=== PATIENT | male | born 1975 | race Caucasian/White ===

== ENCOUNTER 2024-04-17 12:22 | Emergency (ER) | payer BC ==
[2024-04-17 12:44] VITALS: TEMP 97.9; O2SAT 98
--- NOTE | 2024-04-17 13:10 | ERPHSYRPT ---
- History of Present Illness Time Seen by Provider: 04/17/24 13:00 Source: patient Exam Limitations: no limitations Patient Subjective Stated Complaint: back pain that radiates to the right lower abdomen/pelvic region Triage Nursing Assessment: Pt brought to the ER by his , hypertensive, rates pain as a 7/10 in his right flank and right lower abdomen/pelvic region, pulses normal, skin n/w/d, pain began last night, frequent/painful urination, no difficulty breathing, doesn't appear to be in any distress Allergies/Adverse Reactions: lisinopril Allergy (Verified 04/17/24 12:44) Home Medications: Testosterone Enanthate [Xyosted] 75 mg SQ UD 04/17/24 [History] Tirzepatide [Zepbound] 5 mg SQ WEEKLY 04/17/24 [History] Hx Influenza Vaccination/Date Given: No Hx Pneumococcal Vaccination/Date Given: No Travel Risk - International Travel Have you traveled outside of the country in past 3 weeks: No - Emerging Infectious Disease Are you exhibiting symptoms associated with any current EIDs: No - Past Medical History Pertinent Past Medical History: No - Past Surgical History Past Surgical History: Yes Gastrointestinal: Appendectomy Musculoskeletal: Orthopedic Surgery Other Surgical History: wrist - Social History Smoking Status: Never smoker Exposure to second hand smoke: No Drug Use: none - Social Determinants of Health Will the patient participate in the screening: Yes Do you worry about a steady place to live?: No Do you have any problems with any of the following?: No known problems In the past 12 months,have you had to go without utilities?: No Transportation Issues: No Has anyone in your support network made you feel unsafe?: No Have you or anyone in your house had to go without enough: No - Nursing Vital Signs Nursing Vital Signs: Initial Vital Signs Temperature 97.9 F 04/17/24 12:36 Pulse Rate 77 04/17/24 12:36 Blood Pressure 171/92 04/17/24 12:36 O2 Sat by Pulse Oximetry 98 04/17/24 12:36 Pain Scale Pain Intensity [Right Lower 7 Abdomen] Pain Intensity 7 - Physical Exam SpO2: 98 Ordered Tests: Active Orders 24 hr Category Date Time Status ABDOMEN AND PELVIS W/0 CONTRAS [CT] Stat Exams 04/17/24 13:09 Completed CBC W DIFF Stat Lab 04/17/24 13:20 Completed CMP Stat Lab 04/17/24 13:20 Completed UA W/RFX UR CULTURE Stat Lab 04/17/24 13:23 Completed Medication Summary Discontinued Medications Generic Name Dose Route Start Last Admin Trade Name Tee PRN Reason Stop Dose Admin Sodium Chloride 1,000 mls @ 999 mls/hr 04/17/24 13:07 04/17/24 14:29 Sodium Chloride 0.9% 1000 Ml IV 04/17/24 14:07 Infused .Q1H1M STA Infusion Sodium Chloride Confirm 04/17/24 13:24 Sodium Chloride 0.9% 1000 Ml Administered 04/17/24 13:25 Dose 1,000 mls @ ud .ROUTE .STK-MED ONE Ketorolac Tromethamine 30 mg 04/17/24 13:07 04/17/24 13:25 Ketorolac Tromethamine 30 Mg/Ml Inj IV 04/17/24 13:08 30 mg STAT ONE Administration Ketorolac Tromethamine Confirm 04/17/24 13:24 Ketorolac Tromethamine 30 Mg/Ml Inj Administered 04/17/24 13:25 Dose 30 mg .ROUTE .STK-MED ONE Lab/Rad Data: Laboratory Result Diagrams 04/17/24 13:20 04/17/24 13:20 Laboratory Results 04/17/24 04/17/24 04/17/24 Range/Units 13:23 13:20 13:20 WBC 8.5 (4.23-9.07) x10^3/uL RBC 5.32 (4.63-6.08) x10^6/uL Hgb 15.3 (13.7-17.5) g/dL Hct 45.6 (40.1-51.0) % MCV 85.7 (79.0-92.2) fL MCH 28.8 (25.7-32.2) pg MCHC 33.6 (32.3-36.5) g/dL RDW 13.2 (11.6-14.4) % Plt Count 162 L (163-337) x10^3/uL MPV 9.9 (9.4-12.4) fL Gran % 72.8 H (34.0-67.9) % Immature Gran % (Auto) 0.4 (0.001-0.429) % Nucleat RBC Rel Count 0.0 (0.00-0.2) % Eos # (Auto) 0.07 (0.04-0.54) x10^3/uL Immature Gran # (Auto) 0.03 (0.001-0.031) x10^3u/L Absolute Lymphs (auto) 1.61 (1.32-3.57) x10^3/uL Absolute Monos (auto) 0.55 (0.30-0.82) x10^3/uL Absolute Nucleated RBC 0.00 (0.00-0.012) x10^3u/L Lymphocytes % 18.9 L (21.8-53.1) % Monocytes % 6.5 (5.3-12.2) % Eosinophils % 0.8 (0.8-7.0) % Basophils % 0.6 (0.2-1.2) % Absolute Granulocytes 6.19 H (1.78-5.38) x10^3/uL Basophils # 0.05 (0.01-0.08) x10^3/uL Sodium 138 (135-145) mmol/L Potassium 4.0 (3.5-5.1) mmol/L Chloride 105 (98-107) mmol/L Carbon Dioxide 25 (22-30) mmol/L Anion Gap 12.4 (5-15) MEQ/L BUN 22 H (9-20) mg/dL Creatinine 1.11 (0.66-1.25) mg/dL Estimated GFR 81.4 ML/MIN Glucose 119 H (74-106) mg/dL Calcium 9.4 (8.4-10.2) mg/dL Total Bilirubin 1.00 (0.2-1.3) mg/dL AST 33 (17-59) U/L ALT 35 (0-50) U/L Alkaline Phosphatase 56 (38-126) U/L Serum Total Protein 6.8 (6.3-8.2) g/dL Albumin 4.1 (3.5-5.0) g/dL Urine Color Yellow (Yellow) Urine Appearance Clear (Clear) Urine pH 5.5 (4.6-8.0) Ur Specific [place] 1.025 (1.005-1.030) Urine Protein Negative (Negative) Urine Glucose (UA) Negative (Negative) mg/dL Urine Ketones Negative (Negative) Urine Blood Small A (Negative) Urine Nitrite Negative (Negative) Urine Bilirubin Negative (Negative) Urine Urobilinogen 0.2 (0.2) mg/dL Ur Leukocyte Esterase Negative (Negative) U Hyaline Cast (Auto) NONE SEEN (0-2) /LPF Urine Microscopic RBC 6-10 A (0-5) /HPF Urine Microscopic WBC 0-2 (0-5) /HPF Ur Epithelial Cells None Seen (None Seen) /HPF Urine Bacteria None Seen (None Seen) /HPF Urine Culture Reflexed NO (NO) - Progress Progress: improved, pain not gone completely Progress Note: 04/17/24 16:18 CT abd/pel showed 1. Right vesicoureteric junction calculi with subsequent proximal mild hydroureteronephrosis. 2. Left renal gravel and small calculi. 3. Fatty hepatomegaly. 4. Mildly enlarged prostate. 04/17/24 16:21 UA showed mild hematuria which is consistent w/ kidney stone labs not suggestive of acute infxn plan to dc home w/ PCP follow up this week (Jon) discuss enlargement of prostate with primary care physician will send home w/ 2 norco 10mg tablets for pain control, break in half for a total of 4 5mg doses will send prescription for tamsulosin to pharmacy, take 1 tablet daily avoid ibuprofen or NSAIDs for the next 24 hours recommend plenty of oral hydration w/ clear liquids return to ED if: develop vomiting, develop fevers, develop inability to urinate, pain becomes unbearable Counseled pt/family regarding: lab results, diagnosis, need for follow-up, rad results Medical Desision Making - Diagnostic Testing Diagnostic test were ordered, analyzed, and reviewed by me: Yes Radiological Interpretation: Reviewed by me, Teleradiologist Report - Risk of complications Low Risk: Low risk of morbidity from additional dx testing or treatment - Departure Departure Disposition: Home Clinical Impression: Right ureteral stone Abdominal pain Qualifiers: Abdominal location: right lower quadrant Qualified Code(s): R10.31 - Right lower quadrant pain Condition: Stable Critical Care Time: No Referrals: KELLEY SALAZAR, ARCHITECTURAL MANAGER [Primary Care Provider] - Follow up/PCP as directed Additional Instructions: plan to dc home w/ PCP follow up this week (Jon) discuss enlargement of prostate with primary care physician will send home w/ 2 norco 10mg tablets for pain control, break in half for a total of 4 5mg doses will send prescription for tamsulosin to pharmacy, take 1 tablet daily avoid ibuprofen or NSAIDs for the next 24 hours recommend plenty of oral hydration w/ clear liquids return to ED if: develop vomiting, develop fevers, develop inability to urinate, pain becomes unbearable Prescriptions: Tamsulosin HCl 0.4 mg [Flomax 0.4 MG] 0.4 mg PO DAILY #10 cap
[2024-04-17] MEDS ORDERED: TORAdol 30 mg Injection ONE (13:24)
[2024-04-17] MEDS ORDERED: Sodium Chloride 0.9% 1000 ML 1,000 ML ONE (13:24)
[2024-04-17] MEDS: Sodium Chloride 0.9% 1000 ML 1,000 ML IV STA (13:25)
[2024-04-17] MEDS: TORAdol 30 mg Injection IV ONE (13:25)
[2024-04-17 13:28] LABS: Absolute Neutrophil Ct (ANC) 6.19 x10^3/uL (1.78-5.38); BASOPHIL % 0.6 % (0.2-1.2); Basophil (Absolute #) 0.05 x10^3/uL (0.01-0.08); Eosinophil % 0.8 % (0.8-7.0); Eosinophil (Absolute #) 0.07 x10^3/uL (0.04-0.54); Hematocrit 45.6 % (40.1-51.0); Hemoglobin 15.3 g/dL (13.7-17.5); IMMATURE GRAN # 0.03 x10^3u/L (0.001-0.031); IMMATURE GRAN % 0.4 % (0.001-0.429); Lymphocyte (Absolute #) 1.61 x10^3/uL (1.32-3.57); Lymphocytes % 18.9 % (21.8-53.1); Mean Cell Volume 85.7 fL (79.0-92.2); Mean Corpuscular Hemoglobin 28.8 pg (25.7-32.2); Mean Corpuscular Hgb Concent. 33.6 g/dL (32.3-36.5); Mean Platelet Volume 9.9 fL (9.4-12.4); Monocyte (Absolute #) 0.55 x10^3/uL (0.30-0.82); Monocytes % 6.5 % (5.3-12.2); Neutrophil % 72.8 % (34.0-67.9); Platelet Count 162 x10^3/uL (163-337); Red Blood Count 5.32 x10^6/uL (4.63-6.08); Red Cell Distribution Width 13.2 % (11.6-14.4); White Blood Count 8.5 x10^3/uL (4.23-9.07)
[2024-04-17 13:30] LABS: Appearance Clear (Clear); Bacteria None Seen /HPF (None Seen); Bilirubin Negative (Negative); Blood Small (Negative); Epithelial Cells None Seen /HPF (None Seen); Glucose, Urine Negative (Negative); Hyaline Casts NONE SEEN /LPF (0-2); Ketones Negative (Negative); Leukocyte Esterase Negative (Negative); Nitrite Negative (Negative); Ph 5.5 (4.6-8.0); Protein,Urine Dip Negative (Negative); Specific Gravity 1.025 (1.005-1.030); Urobilinogen 0.2 mg/dL (0.2); WBC 0-2 /HPF (0-5)
[2024-04-17 13:44] LABS: ALBUMIN 4.1 g/dL (3.5-5.0); ANION GAP 12.4 MEQ/L (5-15); Calcium 9.4 mg/dL (8.4-10.2); Creatinine 1 1.11 mg/dL (0.66-1.25); EST GLOMERULAR FILTRATION RATE 81.4 ML/MIN; Total Protein 6.8 g/dL (6.3-8.2)
--- NOTE | 2024-04-17 16:09 | XRAY ---
CLINICAL HISTORY: right low back/flank pain COMPARISON: None. TECHNIQUE: Non-contrast CT of the abdomen and pelvis was performed, with the following protocol: axial images, and reconstructed coronal and sagittal images. One of the following dose reduction techniques was utilized for this exam: Automated exposure control, adjustment of the mA and/or kV according to patient size, and use of iterative reconstruction. FINDINGS: Abdomen: Right vesico-ureteric stone small stone is seen measuring 3 mm with a maximum density of 711 HU causing subsequent minimal proximal right ureteric and pelvicalyceal dilatation Left upper calyceal small stone measuring 2.5 mm and lower calyceal tiny gravel. Liver: enlarged in size measuring 18.2 cm showing reduced density. No focal lesions, cysts, or masses were identified. Gallbladder and Biliary System: The gallbladder is normal in size and shape. No wall thickening, pericholecystic fluid, or gallstones were identified. Pancreas: Pancreatic head, body, and tail are visualized and appear normal in size and density. No pancreatic masses or calcifications were noted. Spleen: Normal in size, shape, and density. No splenic lesions or masses were identified. Adrenal Glands: Adrenal glands are unremarkable. Abdominal Aorta and Vessels: The abdominal aorta and major branches are patent without evidence of an aneurysm or significant atherosclerosis. Pelvis: Urinary Bladder: Normal in contour and wall thickness. No intraluminal lesions. Prostate: Mildly enlarged measuring 4.6 x 3.7 x 4.2 cm giving estimated volume of 36 cc with foci of calcifications. Seminal Vesicles: Normal appearance without abnormal enlargement or mass. Peritoneal and Retroperitoneal Structures: No free fluid or abnormal fluid collections were identified within the abdomen or pelvis. No lymphadenopathy was noted. The appendix appears normal. Bowel: The visualized bowel loops are normal in caliber and appearance. No evidence of bowel obstruction or wall thickening. Bones and Soft Tissues: Minimal retrolithesis of L3 over L4 and L4 over L5 vertebrae. Pelvic bones and soft tissues are unremarkable. No fractures or abnormal masses were identified. IMPRESSION: 1. Right vesicoureteric junction calculi with subsequent proximal mild hydroureteronephrosis. 2. Left renal gravel and small calculi. 3. Fatty hepatomegaly. 4. Mildly enlarged prostate. Electronically Signed by: Tati Woody MD. (04/17/2024 16:04:58 EST)
[2024-04-17 16:28] VITALS: BP 127/78; PULSE 58
[2024-04-17] MEDS ORDERED: NORCO 10-325 MG ONE (16:50)
[2024-04-17] MEDS: NORCO 10-325 MG PO ONE (16:51)
== END 2024-04-17 17:00 | disposition home or self-care (01) ==
LOC: ED 12:22
DX: N13.2 Hydronephrosis with renal and ureteral calculous obstruction (principal); R10.31 Right lower quadrant pain; M54.50 Low back pain, unspecified; R30.0 Dysuria; R11.0 Nausea; Z79.84 Long term (current) use of oral hypoglycemic drugs; Z79.899 Other long term (current) drug therapy
CPT/HCPCS: 36415; 74176; 80053; 81001; 85025; 96360; 96374; 99284; J1885; A9270-GY

== ENCOUNTER 2025-01-16 13:28 | Emergency (ER) | payer BC ==
[2025-01-16 13:50] VITALS: TEMP 97.6
--- NOTE | 2025-01-16 14:32 | ERPHSYRPT ---
- History of Present Illness Patient Subjective Stated Complaint: headache, high blood pressure, general malaise Triage Nursing Assessment: Patient walks to the bed and states he has been feeling pooly. He says his blood pressure is increased, he has a headache, and interrmittant back and neck pain. Breathing is easy, skin is warm and dry. He denies chest pain and shortness of breath. He rates his headache at a 3. Physician History: Not feeling well, patient states that over the last several days he has not felt well and was concerned that his blood pressure may be elevated, he apparently was taken off his blood pressure medication about a year ago, he apparently lost 20 to 30 pounds and his blood pressure was normal, and he was having some symptoms (lightheadedness) and his primary care doctor stopped his medication, he did gain most of his weight back, He has known family history of coronary artery disease in early age, he has had calcium scoring test which were normal, at the time examination he has some mild chest pain(Not different than what he has had in the past) Allergies/Adverse Reactions: lisinopril Allergy (Verified 04/17/24 12:44) Home Medications: Testosterone Enanthate [Xyosted] 75 mg SQ WEEKLY 04/17/24 [History] Hx Tetanus, Diphtheria Vaccination/Date Given: No Hx Influenza Vaccination/Date Given: No Hx Pneumococcal Vaccination/Date Given: No Travel Risk - International Travel Have you traveled outside of the country in past 3 weeks: No - Emerging Infectious Disease Are you exhibiting symptoms associated with any current EIDs: No - Past Medical History Pertinent Past Medical History: No Neurological History: No Pertinent History ENT History: No Pertinent History Cardiac History: Other Respiratory History: No Pertinent History Endocrine Medical History: No Pertinent History Musculoskeletal History: No Pertinent History GI Medical History: No Pertinent History History: No Pertinent History Psycho-Social History: No Pertinent History Male Reproductive Disorders: No Pertinent History Other Medical History: leaky valve and bundle branch block - Past Surgical History Past Surgical History: Yes Gastrointestinal: Appendectomy Musculoskeletal: Orthopedic Surgery Other Surgical History: wrist - Social History Smoking Status: Never smoker Exposure to second hand smoke: No Drug Use: none - Social Determinants of Health Will the patient participate in the screening: Yes Do you worry about a steady place to live?: No Do you have any problems with any of the following?: No known problems In the past 12 months,have you had to go without utilities?: No Transportation Issues: No Has anyone in your support network made you feel unsafe?: No Have you or anyone in your house had to go w/o enough food: No - Nursing Vital Signs Nursing Vital Signs: Initial Vital Signs Temperature 97.6 F 01/16/25 13:35 Pulse Rate 82 01/16/25 13:35 Respiratory Rate 18 01/16/25 13:35 Blood Pressure 163/101 01/16/25 13:35 O2 Sat by Pulse Oximetry 97 01/16/25 13:35 Pain Scale Pain Intensity 4 - Physical Exam General Appearance: no apparent distress, alert, obese Eye Exam: PERRL/EOMI, eyes nml inspection Ears, Nose, Throat Exam: normal ENT inspection, TMs normal, pharynx normal, moist mucous membranes Neck Exam: normal inspection, non-tender, supple, full range of motion Respiratory Exam: normal breath sounds, lungs clear, No respiratory distress Cardiovascular Exam: regular rate/rhythm, normal heart sounds, normal peripheral pulses Gastrointestinal/Abdomen Exam: soft, normal bowel sounds, No tenderness, No mass Back Exam: normal inspection, normal range of motion, No CVA tenderness, No vertebral tenderness Extremity Exam: normal inspection, normal range of motion, pelvis stable Neurologic Exam: alert, oriented x 3, cooperative, normal mood/affect, nml cerebellar function, nml station & gait, sensation nml, No motor deficits Skin Exam: normal color, warm, dry, No rash Lymphatic Exam: No adenopathy SpO2: 97 Ordered Tests: Active Orders 24 hr Category Date Time Status Watch Commander STAT Care 01/16/25 14:10 Active EKG-ER Only STAT Care 01/16/25 14:11 Active IV Insertion STAT Care 01/16/25 14:10 Active HEAD WITHOUT CONTRAST [CT] Stat Exams 01/16/25 14:10 Completed CBC W DIFF Stat Lab 01/16/25 14:40 Completed CMP Stat Lab 01/16/25 14:40 Completed Lactic Acid Stat Lab 01/16/25 14:10 Completed Medication Summary Discontinued Medications Generic Name Dose Route Start Last Admin Trade Name Freq PRN Reason Stop Dose Admin Ketorolac Tromethamine 30 mg 01/16/25 14:10 01/16/25 14:39 Ketorolac Tromethamine 30 Mg/Ml Inj IV 01/16/25 14:11 30 mg STAT ONE Administration Ketorolac Tromethamine Confirm 01/16/25 14:38 Ketorolac Tromethamine 30 Mg/Ml Inj Administered 01/16/25 14:39 Dose 30 mg .ROUTE .K-MED ONE Lab/Rad Data: Laboratory Result Diagrams 01/16/25 14:40 01/16/25 14:40 Laboratory Results 01/16/25 01/16/25 01/16/25 Range/Units 14:40 14:40 14:10 WBC 6.8 (4.23-9.07) x10^3/uL RBC 5.73 (4.63-6.08) x10^6/uL Hgb 16.7 (13.7-17.5) g/dL Hct 50.7 (40.1-51.0) % MCV 88.5 (79.0-92.2) fL MCH 29.1 (25.7-32.2) pg MCHC 32.9 (32.3-36.5) g/dL RDW 13.0 (11.6-14.4) % Plt Count 154 L (163-337) x10^3/uL MPV 10.0 (9.4-12.4) fL Gran % 61.9 (34.0-67.9) % Immature Gran % (Auto) 0.3 (0.001-0.429) % Nucleat RBC Rel Count 0.0 (0.00-0.2) % Eos # (Auto) 0.12 (0.04-0.54) x10^3/uL Immature Gran # (Auto) 0.02 (0.001-0.031) x10^3u/L Absolute Lymphs (auto) 2.03 (1.32-3.57) x10^3/uL Absolute Monos (auto) 0.37 (0.30-0.82) x10^3/uL Absolute Nucleated RBC 0.00 (0.00-0.012) x10^3u/L Lymphocytes % 29.9 (21.8-53.1) % Monocytes % 5.4 (5.3-12.2) % Eosinophils % 1.8 (0.8-7.0) % Basophils % 0.7 (0.2-1.2) % Absolute Granulocytes 4.20 (1.78-5.38) x10^3/uL Basophils # 0.05 (0.01-0.08) x10^3/uL Sodium 140 (135-145) mmol/L Potassium 3.7 (3.5-5.1) mmol/L Chloride 105 (98-107) mmol/L Carbon Dioxide 29 (22-30) mmol/L Anion Gap 9.7 (5-15) MEQ/L BUN 16 (9-20) mg/dL Creatinine 1.04 (0.66-1.25) mg/dL Estimated GFR 87.5 ML/MIN Glucose 91 (74-106) mg/dL Lactic Acid 1.0 (0.4-2.0) Calcium 9.4 (8.4-10.2) mg/dL Total Bilirubin 1.30 (0.2-1.3) mg/dL AST 37 (17-59) U/L ALT 42 (0-50) U/L Alkaline Phosphatase 66 (38-126) U/L Serum Total Protein 8.1 (6.3-8.2) g/dL Albumin 4.5 (3.5-5.0) g/dL - Progress Progress: re-examined Progress Note: 01/16/25 16:[address] and lab results, patient is allergic to lisinopril, recommend starting him on calcium channel tadeo(Diltiazem); He has a contact lens manufacturer that he sees, I recommend that he follow-up with cardiology in clinic - Departure Departure Disposition: Home Clinical Impression: Hypertension, uncontrolled Condition: Stable Critical Care Time: No Referrals: KELLEY SALAZAR NP [Primary Care Provider, UNKNOWN] - Follow up other Referral Note: follow up 1-2 weeks Instructions: High blood pressure - ED discharge instructions Additional Instructions: You may follow-up with cardiology in 1 to 2 weeks to have your blood pressure rechecked and have them rechecked the medication Prescriptions: dilTIAZem HCL [Diltiazem 24Hr ER ([place])] 120 mg PO DAILY #20 tablet
[2025-01-16] MEDS ORDERED: TORAdol 30 mg Injection ONE (14:38)
[2025-01-16] MEDS: TORAdol 30 mg Injection IV ONE (14:39)
[2025-01-16 14:42] LABS: BASOPHIL % 0.7 % (0.2-1.2); Basophil (Absolute #) 0.05 x10^3/uL (0.01-0.08); Eosinophil (Absolute #) 0.12 x10^3/uL (0.04-0.54); Hematocrit 50.7 % (40.1-51.0); Hemoglobin 16.7 g/dL (13.7-17.5); IMMATURE GRAN # 0.02 x10^3u/L (0.001-0.031); IMMATURE GRAN % 0.3 % (0.001-0.429); Lymphocyte (Absolute #) 2.03 x10^3/uL (1.32-3.57); Mean Corpuscular Hemoglobin 29.1 pg (25.7-32.2); Mean Corpuscular Hgb Concent. 32.9 g/dL (32.3-36.5); Monocyte (Absolute #) 0.37 x10^3/uL (0.30-0.82); NUCLEATED RBC # 0.00 x10^3u/L (0.00-0.012); NUCLEATED RBC % 0.0 % (0.00-0.2); Platelet Count 154 x10^3/uL (163-337); Red Blood Count 5.73 x10^6/uL (4.63-6.08); White Blood Count 6.8 x10^3/uL (4.23-9.07)
[2025-01-16 14:55] LABS: Calcium 9.4 mg/dL (8.4-10.2); Carbon Dioxide 29.0 mmol/L (22-30); Creatinine 1 1.04 mg/dL (0.66-1.25); EST GLOMERULAR FILTRATION RATE 87.5 ML/MIN; Glucose 91.0 mg/dL (74-106); Potassium 3.7 mmol/L (3.5-5.1); SGOT/AST 37.0 U/L (17-59); SGPT/ALT 42.0 U/L (0-50); Total Protein 8.1 g/dL (6.3-8.2)
--- NOTE | 2025-01-16 15:48 | XRAY ---
CLINICAL HISTORY: headache COMPARISON: No prior for comparison. TECHNIQUE: Axial non-contrast CT scan of the brain was performed from the skull base to the high parietal region. One of the following dose reduction techniques was utilized for this exam: automated exposure control, adjustment of the mA and/or kV according to patient size, or use of iterative reconstruction. FINDINGS: Brain Parenchyma: There is normal attenuation of the cerebral hemispheres, cerebellum, and brainstem. There is no evidence of acute infarct, hemorrhage, or mass effect. There are no abnormal areas of hypo- or hyperattenuation. Ventricular System: The ventricles are normal in size and configuration. There is no evidence of hydrocephalus or ventricular enlargement. Subarachnoid Spaces: The sulci and cisterns are normal. There is no evidence of subarachnoid hemorrhage or extra-axial fluid collections. Cerebellum and Brainstem: There are no masses, lesions, or areas of abnormal density. Orbits: There is normal appearance of the globes, optic nerves, and extraocular muscles. There is no evidence of orbital masses or abnormal density. Sinuses: There is marked mucosal thickening with almost complete obliteration of the left maxillary sinus, with a hyperdense area seen within. The remainder of the scanned paranasal sinuses is clear. There is a leftward deviation of the nasal septum. Mastoid Air Cells: The mastoid air cells are clear. There is no evidence of mastoiditis. Skull: There is normal skull morphology. IMPRESSION: 1. Normal CT of the head without contrast. 2. No evidence of acute insult. 3. Marked left maxillary sinusitis with superadded fungal sinusitis. Clinical correlation is needed. Electronically Signed by: Stephen Crespo MD. (01/16/2025 15:46:03 EDT)
[2025-01-16 16:36] VITALS: BP 142/87; PULSE 76; RESP 14; O2SAT 99
== END 2025-01-16 16:38 | disposition home or self-care (01) ==
LOC: ED 13:28
DX: I10 Essential (primary) hypertension (principal); R51.9 Headache, unspecified; Z79.899 Other long term (current) drug therapy

== ENCOUNTER 2025-01-28 11:24 | Emergency (ER) | payer BC ==
--- NOTE | 2025-01-28 11:34 | ERPHSYRPT ---
- History of Present Illness Time Seen by Provider: 01/28/25 11:33 Source: patient Exam Limitations: no limitations Physician History: This is a 50-year-old white male patient arrives for private vehicle accompanied by his spouse with complaint of blood pressure issues and "not feeling well". Patient was seen in our emergency department on 01/16/2025. During that emergency department evaluation patient had a very complete workup. His systolic blood pressure on arrival was 163 mmHg. The subsequent readings were reasonable with systolic blood pressures of 120 mmHg to 140s millimeters of mercury. The CT scan did not show anything in acute intracranially. However there was evidence of left maxillary sinusitis and possible fungal sinusitis. He was not given prescriptions for this finding. Patient did see Xin Adames, his training assistant and the patient is now on the combination antihypertensive of losartan/HCTZ. His initial systolic blood pressures in the normal range. However he has complaints of left anterior chest burning and some left upper abdominal discomfort. Patient was seen by his nurse practitioner today. I reviewed outpatient laboratory results from that visit. There is a normal D- dimer. There is normal troponin level. There is a normal twelve-lead EKG. His laboratory results show no acute, emergent medical issues. The twelve-lead EKG performed on 01/17/2025 was also without evidence of acute ischemia. His nurse practitioner stated that he they wanted him to come over to the emergency department and have a CT scan of the chest and CT scan of the abdomen pelvis performed. Timing/Duration: gradual onset Severity: mild Associated Symptoms: abdominal pain (Upper abdominal discomfort), chest pain (Described as a burning over the left chest), other (Left chest burning), No shortness of breath Allergies/Adverse Reactions: lisinopril Allergy (Verified 01/28/25 11:42) Home Medications: Testosterone Enanthate [Xyosted] 75 mg SQ WEEKLY 04/17/24 [History] Losartan/Hydrochlorothiazide [Losartan-Hctz 50-12.5 mg Tab] 1 ea DAILY 01/28/25 [History] Hx Tetanus, Diphtheria Vaccination/Date Given: No Hx Influenza Vaccination/Date Given: No Hx Pneumococcal Vaccination/Date Given: No Travel Risk - International Travel Have you traveled outside of the country in past 3 weeks: No - Emerging Infectious Disease Are you exhibiting symptoms associated with any current EIDs: No - Review of Systems Constitutional: No Symptoms Eyes: No Symptoms Ears, Nose, & Throat: No Symptoms Respiratory: No Symptoms Cardiac: Chest Pain (Left chest burning) Abdominal/Gastrointestinal: Abdominal Pain (Upper abdominal discomfort) Genitourinary Symptoms: No Symptoms Musculoskeletal: No Symptoms Skin: No Symptoms Neurological: No Symptoms Psychological: No Symptoms Endocrine: No Symptoms Hematologic/Lymphatic: No Symptoms Immunological/Allergic: No Symptoms All Other Systems: Reviewed and Negative - Past Medical History Pertinent Past Medical History: No Neurological History: No Pertinent History ENT History: No Pertinent History Cardiac History: Other Respiratory History: No Pertinent History Endocrine Medical History: No Pertinent History Musculoskeletal History: No Pertinent History GI Medical History: No Pertinent History History: No Pertinent History Psycho-Social History: No Pertinent History Male Reproductive Disorders: No Pertinent History Other Medical History: leaky valve and bundle branch block - Past Surgical History Past Surgical History: Yes Gastrointestinal: Appendectomy Musculoskeletal: Orthopedic Surgery Other Surgical History: wrist - Social History Smoking Status: Never smoker Exposure to second hand smoke: No Drug Use: none - Social Determinants of Health Will the patient participate in the screening: Yes Do you worry about a steady place to live?: No In the past 12 months,have you had to go without utilities?: No Transportation Issues: No Has anyone in your support network made you feel unsafe?: No Have you or anyone in your house had to go w/o enough food: No - Nursing Vital Signs Nursing Vital Signs: Initial Vital Signs Pulse Rate 88 01/28/25 11:36 Respiratory Rate 15 01/28/25 11:36 Blood Pressure 123/84 01/28/25 11:36 O2 Sat by Pulse Oximetry 97 01/28/25 11:36 Pain Scale Pain Intensity 6 - Physical Exam General Appearance: no apparent distress, alert, anxiety Eye Exam: PERRL/EOMI, eyes nml inspection Ears, Nose, Throat Exam: normal ENT inspection, moist mucous membranes Neck Exam: normal inspection, non-tender, supple, full range of motion Respiratory Exam: normal breath sounds, lungs clear, airway intact, No chest tenderness, No respiratory distress Cardiovascular Exam: regular rate/rhythm, normal heart sounds, normal peripheral pulses Gastrointestinal/Abdomen Exam: soft, normal bowel sounds, No tenderness Rectal Exam: not done Back Exam: normal inspection, normal range of motion, No CVA tenderness, No vertebral tenderness Extremity Exam: normal inspection, normal range of motion, pelvis stable Neurologic Exam: alert, oriented x 3, cooperative, moth exterminator II-XII nml as tested, no rmal mood/affect, nml cerebellar function, nml station & gait, sensation nml Skin Exam: normal color, warm, dry Lymphatic Exam: No adenopathy SpO2 Interpretation: normal O2 Delivery: Room Air - Course Nursing assessment & vital signs reviewed: Yes EKG Interpreted by Me: RATE (72), Sinus Rhythm, NORMAL AXIS, NORMAL INTERVALS, NORMAL QRS, NORMAL ST-T, Other (QTc 406. No acute ischemia on today's twelve- lead EKG.) Ordered Tests: Active Orders 24 hr Category Date Time Status ABDOMEN AND PELVIS W/0 CONTRAS [CT] Stat Exams 01/28/25 12:37 Completed CHEST WITHOUT CONTRAST [CT] Stat Exams 01/28/25 12:37 Completed TROPONIN Q4H Lab 01/28/25 14:01 Completed TROPONIN Q4H Lab 01/28/25 17:45 Ordered TROPONIN Q4H Lab 01/28/25 21:45 Ordered Lab/Rad Data: Laboratory Results 01/28/25 Range/Units 14:01 Troponin I 0.015 (0.000-0.033) ng/mL - Progress Progress: improved, re-examined Progress Note: 01/28/25 14:14 My medical decision making and the assignment of moderate complexity is based on review the patient's past medical history, reviewed patient medication list, reviewed patient drug allergy list, history present illness and physical findings on examination, the workup includes repeat troponin level and repeat twelve-lead EKG. I reviewed outpatient laboratory data results. We will perform the CT scan of the chest and abdomen pelvis at the request of the patient's nurse practitioner. However I do not feel it necessary to perform these test with intravenous contrast. Also, there is a very low probability of this patient has carotid artery issues. He does not have symptomatology or physical exam findings consistent with any type of TIA or CVA. Therefore echocardiogram, MRI of brain, cardiac stress test, carotid Dopplers can be scheduled as an outpatient. Differential diagnosis includes but is not limited to anxiety about health, arrhythmia, myocardial infarction, acute intrathoracic abnormality, acute intra- abdominal/pelvic abnormality. The patient's heart score is less than 4. 01/28/25 14:[address] scans were performed with without contrast and were interpreted by the radiologist. The impressions are: CT scan of the chest without contrast is a normal CT scan of the chest without contrast exam. CT scan of the abdomen pelvis without contrast shows stomach and bowel loops are nonobstructive. There is a left renal nonobstructing punctate calculus. No other acute findings are noted. 01/28/25 14:39 The patient's troponin level here in our emergency department is negative/normal. This is the second normal/negative troponin level that was performed today. Counseled pt/family regarding: lab results, diagnosis, need for follow-up, rad results - Departure Departure Disposition: Home Clinical Impression: Generally unwell, Left maxillary sinusitis Condition: Stable Critical Care Time: No Referrals: KELLEY SALAZAR NP [Primary Care Provider, UNKNOWN] - Follow up/PCP as directed Additional Instructions: Take the antibiotics and other medications as prescribed. Follow-up with your primary care provider today, 01/28/2025, to make arrangements for follow-up appointment to be seen in the next 3 to 5 days and to arrange any outpatient tests that are indicated. Realize that the prednisone will help the sinusitis but may have an effect on increasing your blood pressure. Monitor your blood pressure 3 times a day while you are taking the prednisone. If you are concerned about rising blood pressure levels, stop the prednisone. Prescriptions: Amoxicillin/Potassium Clav [Augmentin 500-125 Tablet] 1 each PO TID 7 Days #21 tablet Prednisone 10 mg [Deltasone 10 mg] 10 mg PO TID #12 tablet Fluconazole 100 mg [Diflucan 100 MG] 100 mg PO DAILY #2 tablet
[2025-01-28 11:42] VITALS: TEMP 98.1
[2025-01-28 14:02] VITALS: PULSE 73
--- NOTE | 2025-01-28 14:19 | XRAY ---
Indication: Pain. Short of breath. Multiple contiguous axial images obtained through the chest without contrast. Comparison: None Normal heart/mediastinal structures, lungs, and bony thorax. CT abdomen/pelvis reported separately. Impression: Normal CT chest without contrast exam.
--- NOTE | 2025-01-28 14:28 | XRAY ---
Indication: Pain. Multiple contiguous axial images obtained through the abdomen and pelvis without contrast. Comparison: April 17, 2024 CT chest reported separately. Noncontrasted stomach and bowel loops appear nonobstructed. Again nonobstructing left renal punctate calculus and appendectomy. No free fluid/air. Remaining liver, gallbladder, pancreas, spleen, adrenal glands, kidneys, ureters, bladder, and aorta are unremarkable for noncontrast exam. Osseous structures intact. Impression: Again incidental nonobstructing left renal punctate calculus. Remaining CT abdomen/pelvis without contrast is normal.
[2025-01-28 14:46] VITALS: BP 124/94; RESP 16; O2SAT 96
== END 2025-01-28 14:51 | disposition home or self-care (01) ==
LOC: ED 11:24
DX: J32.0 Chronic maxillary sinusitis (principal); R07.9 Chest pain, unspecified; R10.12 Left upper quadrant pain; Z79.899 Other long term (current) drug therapy